=== PATIENT | male | born 1940 | race African-American/Black ===

== ENCOUNTER 2020-12-16 13:08 | Emergency (ER) | payer MEDICARE, MEDICAID ==
[~2020-12-16] VITALS: Ht 188 cm; Wt 75.0 kg
[2020-12-16] MEDS ORDERED: SODIUM CHLORIDE 0.9% 1,000 ML IV ONE (13:30)
[2020-12-16 14:16] LABS: CHLORIDE 108 mEq/L (98-107)
[2020-12-16 14:22] LABS: BASOPHILS % 0.4 % (0.0-2.0); EOSINOPHILS % 1.3 % (0.0-5.0); HEMATOCRIT. 45.1 % (42.0-52.0); HEMOGLOBIN. 14.9 g/dL (14.0-18.0); LYMPHOCYTES % 27.3 % (20.0-50.0); MEAN CORPUSCULAR HEMOGLOBIN 29.2 pg (28.0-32.0); MEAN CORPUSCULAR VOLUME 88.1 fL (80.0-94.0); MEAN PLATELET VOLUME 9.1 fl (7.4-10.4); MONOCYTES % 7.6 % (2.0-8.0); NEUTROPHILS % 63.4 % (40.0-76.0); PLATELET 152 x1000/uL (130-400); RED BLOOD CELL COUNT 5.11 mill/uL (4.7-6.1); RED CELL DISTRIBUTION WIDTH 14.9 % (11.6-14.6)
[2020-12-16 14:23] LABS: ETHANOL BLOOD < 10 mg/dL
[2020-12-16 16:13] VITALS: BP 198/106
[2020-12-16] MEDS ORDERED: OLANZAPINE 10 MG/VIAL IM ONE (17:00)
[2020-12-16] MEDS ORDERED: DEXTROSE 50% WATER 50ML SYRINGE IV NR (17:00)
== END 2020-12-16 18:48 | disposition left against medical advice (07) ==
LOC: ER 13:08
DX: R55 Syncope and collapse (principal); R41.82 Altered mental status, unspecified; Z71.89 Other specified counseling; Z87.01 Personal history of pneumonia (recurrent)
CPT/HCPCS: 36415; 70450; 71045; 80053; 80320; 82962; 83880; 84484; 85025; 93005; 96360; 99285; J3490; J7030; G0480